=== PATIENT | female | born 1940 | race Two or more races ===

== ENCOUNTER 2019-06-20 14:14 | Outpatient (CLI) | payer OTHER ==
[~2019-06-20 14:14] MED LIST: COSOPT; LATANOPROST; SYNTHROID50 MCG PO; TESSALON PERLE100 M1 PO; TUSSI PRES-B L120 M1 PO; [UNRECOGNIZED DRUG - OTHER] OP
== END 2019-06-20 14:18 | disposition home or self-care (01) ==
LOC: SONOGRAMA 14:14
DX: M79.601 Pain in right arm (principal)

== ENCOUNTER 2019-06-22 16:51 | Emergency (ER) | payer OTHER ==
[~2019-06-22] VITALS: Ht 149.9 cm; Wt 49.9 kg
[2019-06-22] MEDS ORDERED: IBU600 MG PO (20:49)
== END 2019-06-22 22:04 | disposition home or self-care (01) ==
LOC: ER 16:51
DX: M94.0 Chondrocostal junction syndrome [Tietze] (principal)

== ENCOUNTER 2019-09-29 10:27 | Outpatient (CLI) | payer OTHER ==
[~2019-09-29 10:27] MED LIST changes: +IBU600 MG PO
== END 2019-09-29 10:35 | disposition home or self-care (01) ==
LOC: TOM 10:27
PROVIDERS: ATTEND Internal Medicine
DX: E03.8 Other specified hypothyroidism (principal); R49.0 Dysphonia

== ENCOUNTER 2019-10-13 14:25 | Outpatient (CLI) | payer OTHER | END 2019-10-13 14:38 | disposition home or self-care (01) | LOC: SONOGRAMA 14:25 | PROVIDERS: ATTEND Internal Medicine | DX: E04.2 Nontoxic multinodular goiter (principal); D35.1 Benign neoplasm of parathyroid gland ==

== ENCOUNTER → 2020-01-12 12:19 | Outpatient (CLI) | payer OTHER | END | disposition home or self-care (01) | LOC: EKG 12:19 | PROVIDERS: ATTEND Internal Medicine | DX: R00.2 Palpitations (principal) ==

== ENCOUNTER 2020-02-03 07:39 | Outpatient (CLI) | payer OTHER | END 2020-02-03 07:46 | disposition home or self-care (01) | LOC: NUCLEAR 07:39 | PROVIDERS: ATTEND Internal Medicine | DX: I20.9 Angina pectoris, unspecified (principal) | CPT/HCPCS: 78452; 93017; A9500 ==

== ENCOUNTER 2020-10-24 08:00 | Outpatient (CLI) | payer OTHER | END 2020-10-24 08:30 | disposition home or self-care (01) | LOC: PPH VACUNA 08:00 | DX: Z23 Encounter for immunization (principal) ==